=== PATIENT | female | born 1955 | race Caucasian/White ===

== ENCOUNTER 2020-09-30 07:13 | Day surgery (SDC) | payer MEDICARE, OTHER ==
--- NOTE | 2020-09-27 10:53 | PCM.PREANE ---
Preanesthetic Assessment - Procedure Proposed Procedure: Left Total Hip Arthroplasty - Anesthesia/Transfusion/Family Hx Anesthesia History: Prior Anesthesia Reaction Type of Anesthesia Reaction: Excessive Somnolence (Hard time waking up....) Family History of Anesthesia Reaction: No Transfusion History: No Prior Transfusion(s) Intubation History: Unknown - Review of Systems General: No Symptoms Pulmonary: No Symptoms Cardiovascular: No Symptoms Gastrointestinal: No Symptoms (GERD-controlled), Constipation (chronic), Difficulty Swallowing Neurological: No Symptoms, Difficulty Walking (uses cane), Gait Disturbance (rates left hip pain at 10/10) Other: Reports: None - Physical Assessment NPO Status Date: 09/29/20 NPO Status Time: 21:00 Vital Signs: HR:82 Sat:98% Temp:98.4 Resp:16 B/P:151/73 Height: 1.65 m Weight: 70 kg ASA Class: 2 Mental Status: Alert & Oriented x3 Airway Class: Mallampati = 2 Dentition: Reports: Normal Dentition, [place](s), Caries Thyro-Mental Finger Breadths: 3 Mouth Opening Finger Breadths: 3 ROM/Head Extension: Full Lungs: Clear to Auscultation, Normal Respiratory Effort Cardiovascular: Regular Rate, Regular Rhythm, No Murmurs - Lab Values: All labs reviewed and noted and within acceptable ranges to proceed with scheduled procedure. - Imaging/EKG Impressions: EKG: NSR rate =76 CXR: minimal scar or atelectasis of left lung base. - Allergies Allergies/Adverse Reactions: Allergies Allergy/AdvReac Type Severity Reaction Status Date / Time No Known Allergies Allergy Verified 09/27/20 10:09 - Anesthesia Plan Pre-Op Medication Ordered: Other (Preoperative oral meds (lyrica, tylenol, oxycodone) @ 0724) - Acknowledgements Anesthesia Type Planned: Spinal Pt an Appropriate Candidate for the Planned Anesthesia: Yes Alternatives and Risks of Anesthesia Discussed w Pt/Guardian: Yes Pt/Guardian Understands and Agrees with Anesthesia Plan: Yes PreAnesthesia Questionnaire HEENT History: Reports: Impaired Vision Gastrointestinal History: Reports: Chronic Constipation, GERD Other Gastrointestinal History: Esophagitis, Dysphagia Musculoskeletal History: Reports: Osteoarthritis Other Musculoskeletal History: Polyarthralgia, Hand Parathesia, Cervical Muscle Pain, CMC Arthritis - Past Surgical History Female Surgical History: Reports: Hysterectomy, Other (See Below) Other Female Surgeries/Procedures: Breast Surgery, Ovarian Cystectomy, HRT Musculoskeletal Surgical History: Reports: Hip Replacement, Joint Replacement, Knee Replacement, Shoulder Surgery, Other (See Below) Other Musculoskeletal Surgeries/Procedures:: Left CTS, Right KAI, Right Ganglion Cyst, Right Talus Sx, Right RCR, Left TKA - SUBSTANCE USE Tobacco Use Status *Q: Never Tobacco User Recreational Drug Use History: No - HOME MEDS Home Medications: Home Meds Acetaminophen [Tylenol 8 Hour] 650 mg PO BEDTIME PRN 06/25/20 [History] Biotin 5,000 mcg PO DAILY 06/25/20 [History] Estrogens, Conjugated [Premarin] 0.3 mg PO MOWEFR 06/25/20 [History] Flaxseed/Omega3,6,9/Fatty Acid [Flax Seed Oil 1,300 mg Softgel] 1 cap PO DAILY 06/25/20 [History] Magnesium 500 tab PO DAILY 06/25/20 [History] Mecobalamin [B-12] 1,000 mcg SL DAILY 06/25/20 [History] Melatonin 6 mg PO DAILY 06/25/20 [History] Multivitamin [Multi-Day Vitamins] 1 tab PO DAILY 06/25/20 [History] Omeprazole 40 mg PO DAILY 06/25/20 [History] Calcium Carbonate/Vitamin D3 [Calcium 250+D] 2 tab PO BID 09/27/20 [History] Diclofenac Sodium [Voltaren 1% Gel] 1 dose TOP ASDIRECTED 09/27/20 [History] Fish Oil/DHA/EPA [Fish Oil 1,200 MG] 1,200 mg PO BID 09/27/20 [History] polyethylene glycoL 3350 [MiraLAX] 17 gm PO ASDIRECTED PRN 09/27/20 [History] Aspirin [Aspirin EC] 325 mg PO BID #70 tab 09/28/20 [Rx] Cyclobenzaprine [Flexeril] 10 mg PO BID PRN #20 tab 09/28/20 [Rx] Omeprazole 40 mg PO BID #70 albert. 09/28/20 [Rx] oxyCODONE 5 - 10 mg PO Q4H PRN #40 tab 09/28/20 [Rx] - CURRENT (IN HOUSE) MEDS Current Meds: Current Medications Acetaminophen (Tylenol) 975 mg PO ONETIME ARIANA Stop: 09/30/20 13:00 Lactated Ringer's (Ringers, Lactated) 1,000 mls @ 125 mls/hr IV ASDIRECTED ARIANA Stop: 09/30/20 23:00 Lidocaine/Sodium Bicarbonate (Buffered Lidocaine 1% In Ns 8.4%) 0.25 ml IDERM ONETIME PRN PRN Reason: Prior to IV Start Stop: 09/30/20 18:00 Oxycodone HCl (Oxycontin) 10 mg PO ONETIME ARIANA Stop: 09/30/20 13:00 Pregabalin (Lyrica) 50 mg PO ONETIME ARIANA Stop: 09/30/20 13:00 Sodium Chloride (Saline Flush) 10 ml FLUSH ASDIRECTED PRN PRN Reason: Keep Vein Open Stop: 09/30/20 18:00
[~2020-09-30 07:13] MED LIST: Acetaminophen 325 MG Tab PO SCH; Lidocaine 1%/Sod Bicarbonate in NS 8.4% 1 ML Syringe IDERM PRN; Pregabalin 25 MG Cap PO SCH; Sodium Chloride 0.9% 10 ML Syringe FLUSH PRN; oxyCODONE ER 10 MG TAB.ER PO SCH
[2020-09-30] MEDS: Lactated Ringers 1,000 ML IV SCH ×2 (07:35→10:43)
[2020-09-30] MEDS ORDERED: Propofol 200 MG/20 ML SDV ONE ×2 (08:09→09:39)
[2020-09-30] MEDS ORDERED: Midazolam 1 MG/ML 2 ML SDV ONE (08:10)
[2020-09-30] MEDS ORDERED: Lidocaine 1% 4 ML ONE (08:10)
[2020-09-30] MEDS ORDERED: fentaNYL 100 MCG/2 ML SDV ONE (08:10)
[2020-09-30] MEDS ORDERED: Lactated Ringers 1,000 ML ONE ×2 (08:13→08:48)
[2020-09-30] MEDS ORDERED: ceFAZolin 1 GM Vial ONE (08:31)
[2020-09-30] MEDS: Vancomycin 1 GM SDV ONE ×2 (09:41→10:05)
[2020-09-30] MEDS: Morphine 8 MG, EPINEPHrine 0.3 MG, Cefuroxime 750 MG, Ketorolac 30 MG, Sodium Chloride ... PRN ×10 (09:55→10:04)
--- NOTE | 2020-09-30 10:42 | PCM.POSTAN ---
POST ANESTHESIA ASSESSMENT - MENTAL STATUS Mental Status: Alert, Oriented - VITAL SIGNS Vital Signs: Last Vital Signs Temp 97.0 F 09/30/20 10:33 Pulse 70 09/30/20 10:33 Resp 12 09/30/20 10:33 BP 93/54 L 09/30/20 10:33 Pulse Ox 95 09/30/20 10:33 - RESPIRATORY Respiratory Status: Respiratory Rate WNL, Airway Patent, O2 Saturation Stable - CARDIOVASCULAR CV Status: Pulse Rate WNL, Blood Pressure Stable - GASTROINTESTINAL GI Status: No Symptoms - PAIN Pain Score: 0 (post SAB) - POST OP HYDRATION Hydration Status: Adequate & Stable
[2020-09-30] MEDS ORDERED: oxyCODONE 5 MG Tab PO PRN (11:06)
--- NOTE | 2020-09-30 11:53 | CR ---
Pelvis and left hip: AP view of the pelvis was obtained as well as crosstable lateral view of the left hip. Comparison: Previous CT left hip exam of 09/19/20. Bilateral hip prostheses are noted. Left prosthesis has been placed recently. Soft tissue air is noted around the left hip. Right hip prosthesis is noted which appears normal in alignment. Bony structures are slightly osteopenic. No acute fracture or other abnormality is appreciated. Impression: 1. Satisfactory appearance of recently placed left hip prosthesis. 2. Normal right hip prosthesis is seen. Diagnostic code #2
--- NOTE | 2020-09-30 15:18 | PCM48HPAN ---
Post Anesthesia Note - EVALUATION WITHIN 48HRS OF ANESTHETIC Vital Signs in Normal Range: Yes Patient Participated in Evaluation: Yes Respiratory Function Stable: Yes Airway Patent: Yes Cardiovascular Function Stable: Yes Hydration Status Stable: Yes Pain Control Satisfactory: Yes Nausea and Vomiting Control Satisfactory: Yes Mental Status Recovered: Yes Vital Signs: Last Vital Signs Temp 98.1 F 09/30/20 11:30 Pulse 74 09/30/20 14:50 Resp 16 09/30/20 14:50 BP 124/72 09/30/20 14:50 Pulse Ox 97 09/30/20 14:50 - COMMENTS/OBSERVATIONS Free Text/Narrative:: Preparing for home discharge
--- NOTE | 2020-09-30 16:38 | PCM.OPNOTE ---
- General Post-Op/Procedure Note Date of Surgery/Procedure: 09/30/20 Operative Procedure(s): left total hip arthroplasty Pre Op Diagnosis: left hip osteoarthrosis Post-Op Diagnosis: Same Anesthesia Technique: Local, MAC, Spinal Primary Surgeon: Mauro Jones Anesthesia Provider: José Miguel Hancock Credit Interviewer: Ivania Liz Credit Interviewer: Dee Birch EBL in mLs: 300 Complications: None Condition: Good Free Text/Narrative:: Intake & Output 09/30/20 09/30/20 09/30/20 06:59 14:59 22:59 Intake Total 700 Balance 700 50 cup 4 stem 36-2.5
--- NOTE | 2020-10-11 07:48 | OR ---
DATE OF OPERATION: 09/30/2020 SURGEON: Mauro Jones MD OPERATION PERFORMED: Left total hip arthroplasty. PREOPERATIVE DIAGNOSIS: Left hip osteoarthrosis. POSTOPERATIVE DIAGNOSIS: Left hip osteoarthrosis. ANESTHESIA: Local MAC with spinal. ANESTHESIA PROVIDER: Citlaly Penny. ASSISTANTS: Ivania Liz PA-C, and Dee Birch LPN ESTIMATED BLOOD LOSS: 300 mL. COMPLICATIONS: None. CONDITION: Stable. IMPLANTS: 1. Reese size 50 solid Tritanium II acetabular cup. 2. Evaristo size 4 Accolade II stem. 3. Evaristo size 36, -2.5 Biolox femoral head. DESCRIPTION OF PROCEDURE: The patient was identified in the preoperative holding area. Proper site was marked and identified by the surgeon. The patient was taken back to the operating theater where after adequate anesthesia, the patient was placed in the right lateral decubitus position. Axillary roll was placed. Axillary roll was placed. All bony prominences were well padded. Pegs were then placed and well padded. The patient's gluteal fold was parallel to the floor. The left hip was then sterilely prepped and draped in the usual sterile fashion. OR time-out was performed. The patient received 2 g IV Ancef. The Reese Jaylen robotic array was then placed with 3 pins in the iliac crest posterior to the ASIS and the Evaristo Jaylen robotic array was placed. At this time, standard posterior incision was made down to the IT band and gluteal fascia. This was incised along the incisional length. Charnley retractor was then placed. The Evaristo Jaylen robotic checkpoint was placed in the greater tuberosity and leg lengths were measured. At this time, takedown of the short external rotators was done from the level of the piriformis down to the lesser trochanter. Hip was then dislocated. Neck cut was completed. It was found to be adequate. Attention was turned to the acetabulum. Anterior and posterior acetabular retractors were placed. At this time, 15 checkpoints were obtained in the acetabulum after removal of the labrum and the pulvinar. Another 15 were placed around the rim of the acetabulum for checkpoints along with the posterior and anterior horn of the acetabulum were obtained. At this time, the Reese Jaylen robotic arm was brought in. We had difficulty with getting it to obtain power. So, at this point, we went to manual reaming and I was able to ream with a 50 mm reamer which was found to have adequate bony bleeding bed and adequate fixation. At this time, a 50 mm Tritanium II acetabular cup was impacted in place in the proper anatomic position for the patient. 36 flat liner was impacted in place. Attention was turned to the femur. Box chisel was used out laterally. Starter awl was placed down the canal. Starting with the 0 broach, I was able to broach up to a size 4 which was found to be rotationally and vertically stable. A 36, +0 was trialed and was found to be a small amount long. So, at this time, we trialed a 36, -2.5 which was found to have adequate evangelical of leg lengths. At this time, trial implants were removed. The size 4 Accolade II stem was impacted into place and the 36, -2.5 Biolox femoral head was impacted into place. The patient's hip was relocated. #5 Ethibond suture was used for closure of the short external rotators and capsule. 400 mL of Irrisept irrigation was irrigated through the hip along with 1 L pulse lavage irrigation with Ancef. Periarticular injection was completed. Topical tranexamic acid and vancomycin powder were applied. A #2 barbed suture was used for closure of the IT band and gluteal fascia, 2-0 Vicryl was used subcutaneously, and Prineo was used for closure of the skin. The patient tolerated the procedure well and was sent to PACU in stable condition. MMODAL /[id number]
== END 2020-09-30 15:03 | disposition home or self-care (01) ==
LOC: JD.SDS 07:13
PROVIDERS: ATTEND Orthopaedic Surgery
DX: M16.12 Unilateral primary osteoarthritis, left hip (principal); K21.9 Gastro-esophageal reflux disease without esophagitis; F51.01 Primary insomnia; R73.01 Impaired fasting glucose; K59.09 Other constipation; Z01.812 Encounter for preprocedural laboratory examination; Z20.822 Contact with and (suspected) exposure to COVID-19; Z79.899 Other long term (current) drug therapy; Z98.890 Other specified postprocedural states
CPT/HCPCS: 27130; 36415; 73501; 86850; 86900; 86901; 97116; 97161; 97165; A9270; C1713; C1776; J0171; J0690; J0697; J1885; J2250; J2270; J2704; J3010; J3370; J7120; 01214